=== PATIENT | male | born 1945 | race Caucasian/White ===

== ENCOUNTER 2019-10-08 00:18 | Outpatient (CLI) | payer MEDICARE, SELFPAY ==
[2019-10-08 15:54] LABS: SARS-CoV-2 RNA PCR Negative
== END 2019-10-08 00:19 | disposition home or self-care (01) ==
LOC: ANHCOVIDDT 00:18
PROVIDERS: PCP Internal Medicine; Visit Provider Internal Medicine Gastroenterology
DX: Z01.818 Encounter for other preprocedural examination (principal); Z11.59 Encounter for screening for other viral diseases
CPT/HCPCS: 87635; C9803; U0003

== ENCOUNTER 2019-10-11 04:13 | Day surgery (SDC) | payer MEDICARE, SELFPAY ==
[2019-10-05 08:50] VITALS: BMI 39.9
[2019-10-11 06:38] VITALS: BP 181/84; PULSE 72; RESP 18; TEMP 36.6; O2SAT 96
[2019-10-11] MEDS: LACTATED RINGERS 1,000 ML 150 ML IV CONT (06:44)
--- NOTE | 2019-10-11 07:36 | WPDANESEPPF ---
Anes - Initial Pre Proc Eval Procedure: Operation Date: 10/11/19 08:00 Proposed Procedures p Colonoscopy - Jamie Mullins MD Date/Time: 10/11/19 07:36 Surgeon: Jamie Mullins MD Pre Op Diagnosis: lower GI bleed, Hx of Colon polyps Patient Data Age: 74 Gender: M Height: 5 ft 11 in Weight: 131.7 kg Last Vital Signs Temp 97.8 F 10/11/19 06:38 Pulse 72 10/11/19 06:38 Resp 18 10/11/19 06:38 BP 181/84 H 10/11/19 06:38 Pulse Ox 96 10/11/19 06:38 Allergies Allergy/AdvReac Type Severity Reaction Status Date / Time Iodinated Contrast Media Allergy Severe Anaphylaxis Verified 10/11/19 06:36 Home Medications Medication Instructions Recorded Confirmed Type Cbd Oil 1 cap PO DAILY 10/05/19 10/05/19 History aspirin [Adult Low Dose Aspirin] 81 mg PO DAILY 10/05/19 10/05/19 History cholecalciferol (vitamin D3) 125 mcg PO DAILY 10/05/19 10/05/19 History [Vitamin D3] cinnamon bark [Cinnamon] 500 mg PO DAILY 10/05/19 10/05/19 History coQ10 (ubiquinol) 1 cap PO DAILY 10/05/19 10/05/19 History lisinopril 10 mg PO DAILY 10/05/19 10/05/19 History lutein-zeaxanthin 1 cap PO DAILY 10/05/19 10/05/19 History metoprolol succinate 25 mg PO DAILY 10/05/19 10/05/19 History kqeycfcu-amw-UM-lycopen-lutein 1 tablet PO DAILY 10/05/19 10/05/19 History [Centrum Silver Men] omega 7-gls-ewm-fish oil [Fish Oil] 1 cap PO DAILY 10/05/19 10/05/19 History psyllium husk [Daily Fiber] 0.4 g PO DAILY 10/05/19 10/05/19 History rivaroxaban [Xarelto] 20 mg PO DAILY 10/05/19 10/05/19 History Patient hx anesthesia problems: none Family hx anesthesia problems: none PMFSH Past Medical History Medical History (Updated 10/11/19 @ 07:36 by Raymond Morse MD) Atrial fibrillation had ablation Hypertension Morbid obesity EDWIN (obstructive sleep apnea) Anes - Eval Final PreProcedure Day of Procedure 10/11/19 07:36 Patient weight: morbidly obese Heart: regular rate and rhythm Lungs: clear to auscultation Airway: Mallampati scale class III Neurological: alert and oriented Last oral intake: >/= 8 hours ASA classification: IV Emergent: no Anesthetic plan: proceed Anesthesia type and monitoring: general GIVS and standard monitoring Informed Consent: The patient's anesthetic plan and its attendant risks and benefits were discussed with the patient/family/POA. Questions were solicited and answers provided to the satisfaction of the patient/family/POA.
--- NOTE | 2019-10-11 08:01 | WPDGICN ---
Assessment and Plan Assessment and plan (1) History of lower GI bleeding: Code(s): Z87.19 - Personal history of other diseases of the digestive system Status: Acute Assessment and Plan: High-fiber diet advised this will be monitored in evaluated with colonoscopy. Likely related to use of Xarelto. Further recommendations will be given after colonoscopy. (2) History of colon polyps: Code(s): Z86.010 - Personal history of colonic polyps Status: Acute Assessment and Plan: Because of prior colon polyps follow-up colonoscopy will be performed at this time ended intervals in the future. (3) Atrial fibrillation: Code(s): I48.91 - Unspecified atrial fibrillation Status: Acute Assessment and Plan: Because of atrial fibrillation patient requires chronic anticoagulation. Will perform colonoscopy to determine safety of ongoing anticoagulation. GI Consult Note Consult date/time: 10/11/19 08:01 HPI: Govind Sauceda . is a 74 year old male Seen in evaluation at the request of Dr. Quiroga. Patient reports intermittent bright red blood per rectum. This is occurred over the last month intermittently. He typically will have 1 bowel movement a day. Sometimes a small amount of bright red blood associated with wiping. He denies any abdominal or rectal pain. Patient has a prior history of colonoscopy with colon polyps identified in 2013. Past medical history is significant for atrial fibrillation diagnosed in 2017. He is on chronic Xarelto for this reason. Past medical history also significant for hypertension. Family history is noncontributory. There is no history of colon or rectal disease. Review of Systems Review of Systems: All systems reviewed & are unremarkable except as noted in HPI and below PMFSH Past Medical History Medical History Atrial fibrillation had ablation Hypertension Morbid obesity EDWIN (obstructive sleep apnea) Meds Home Medications and Allergies Home Medications Medication Instructions Recorded Confirmed Type Cbd Oil 1 cap PO DAILY 10/05/19 10/05/19 History aspirin [Adult Low Dose Aspirin] 81 mg PO DAILY 10/05/19 10/05/19 History cholecalciferol (vitamin D3) 125 mcg PO DAILY 10/05/19 10/05/19 History [Vitamin D3] cinnamon bark [Cinnamon] 500 mg PO DAILY 10/05/19 10/05/19 History coQ10 (ubiquinol) 1 cap PO DAILY 10/05/19 10/05/19 History lisinopril 10 mg PO DAILY 10/05/19 10/05/19 History lutein-zeaxanthin 1 cap PO DAILY 10/05/19 10/05/19 History metoprolol succinate 25 mg PO DAILY 10/05/19 10/05/19 History tfwuwwct-eth-EA-lycopen-lutein 1 tablet PO DAILY 10/05/19 10/05/19 History [Centrum Silver Men] omega 8-iuy-ebx-fish oil [Fish Oil] 1 cap PO DAILY 10/05/19 10/05/19 History psyllium husk [Daily Fiber] 0.4 g PO DAILY 10/05/19 10/05/19 History rivaroxaban [Xarelto] 20 mg PO DAILY 10/05/19 10/05/19 History Allergies Allergy/AdvReac Type Severity Reaction Status Date / Time Iodinated Contrast Media Allergy Severe Anaphylaxis Verified 10/11/19 06:36 Vital Signs Vital Signs - 24 hr 10/11/19 06:38 Temperature 36.6 C Pulse Rate 72 Respiratory Rate 18 Blood Pressure 181/84 H Pulse Oximetry 96 Exam Narrative: Exam Narrative: Physical exam reveals patient to be alert. Vital signs are stable. HEENT exam unremarkable. He is anicteric. Lungs are clear to auscultation and percussion. Heart is without murmur or extra sounds. Abdominal exam bowel sounds are present soft nontender with no organomegaly. Digital external rectal exam normal.
[2019-10-11 08:23] VITALS: BP 101/55; PULSE 63; RESP 19; O2SAT 94
[2019-10-11 08:33] VITALS: BP 112/59; PULSE 70; RESP 16; O2SAT 97
[2019-10-11 08:43] VITALS: BP 125/66; PULSE 71; RESP 22; O2SAT 97
== END 2019-10-11 08:53 | disposition home or self-care (01) ==
PROVIDERS: PCP Internal Medicine; Visit Provider Internal Medicine Gastroenterology
PROC: 0DJD8ZZ Inspection of Lower Intestinal Tract, Via Natural or Artificial Opening Endoscopic (ICD-10-PCS; CPT 45378; principal; 2019-10-11 08:00)
DX: K92.1 Melena (principal); K64.8 Other hemorrhoids; Z86.010 Personal history of colon polyps; Z87.19 Personal history of other diseases of the digestive system; I48.91 Unspecified atrial fibrillation; I10 Essential (primary) hypertension; G47.33 Obstructive sleep apnea (adult) (pediatric); E66.01 Morbid (severe) obesity due to excess calories; Z68.41 Body mass index [BMI] 40.0-44.9, adult; Z79.01 Long term (current) use of anticoagulants; Z79.82 Long term (current) use of aspirin
CPT/HCPCS: 45378; J2704; J7120